=== PATIENT | female | born 1965 | race Two or more races ===

== ENCOUNTER 2021-03-26 06:03 | Emergency (ER) | payer OTHER ==
[2021-03-26] MEDS ORDERED: methylPREDNISolone Sodium Succinate 125 MG/2 ML SDV IVPUSH ONE (06:17)
--- NOTE | 2021-03-26 06:24 | EDM.PDOC ---
<Debbie Rueda - Last Filed: 03/26/21 11:09> ED HPI GENERAL MEDICAL PROBLEM - General Chief Complaint: Respiratory Problem Stated Complaint: SOB Time Seen by Provider: 03/26/21 06:15 - Related Data Allergies Allergy/AdvReac Type Severity Reaction Status Date / Time No Known Allergies Allergy Verified 03/26/21 06:18 Home Meds: Home Meds predniSONE 40 mg PO WITHBREAKFAST 5 Days #10 tab 03/26/21 [Rx] Course - Re-Assessments/Exams Free Text/Narrative Re-Assessment/Exam: 03/26/21 07:22 Feels much better after duoneb x 2. Breathing comfortably on 2 L NC, good air movement, minimal wheeze. Will observe/wean O2, anticipate dc soon if no recurrence of increased work of breathing. SpO2 91-93% on room air. Discussed ED return precautions. 03/26/21 11:09 Departure - Departure Time of Disposition: 08:32 Disposition: Home, Self-Care 01 Clinical Impression: Exacerbation of asthma Qualifiers: Asthma severity: unspecified severity Asthma persistence: unspecified Qualified Code(s): J45.901 - Unspecified asthma with (acute) exacerbation - Discharge Information Prescriptions: predniSONE 40 mg PO WITHBREAKFAST 5 Days #10 tab Instructions: Asthma Attack, Asthma Attack Prevention, Adult Referrals: PCP,Not In Area [Primary Care Provider] - Forms: ED Department Discharge Additional Instructions: 1. Take prednisone daily as prescribed 2. Use your albuterol inhaler as needed for any shortness of breath/wheezing 3. Follow up with your regular doctor when able 4. Return to the ED as needed for any difficulty breathing/worsening shortness of breath, fever, severe pain, or any other concerning symptoms <Brian Crawford - Last Filed: 03/30/21 20:38> ED HPI GENERAL MEDICAL PROBLEM - General Source of Information: Reports: Patient, Family History Limitations: Reports: Respiratory Distress (Spouse) - History of Present Illness INITIAL COMMENTS - FREE TEXT/NARRATIVE: 56-year-old female presents to the ED due to acute dyspnea with wheeze. She has a history of chronic asthma. Her and her have been on vacation and are headed back to their home in [place]. Symptoms started abruptly yesterday with increased dyspnea and shortness of breath on minimal exertion. Paroxysmal cough minimally productive of whitish sputum. No associated fever chills nausea or vomiting. She slept very little last night due to dyspnea and wheezing. She has been using albuterol metered-dose inhaler and Pulmicort with little relief of her asthma symptoms overnight. Does have some mild central chest discomfort. O2 sats were 92% on presentation to the ED. patient reports she did not ever come down with COVID-19 illness last year and has had both of her COVID-19 vaccinations. Onset: Gradual Onset Date: 03/25/21 Onset Time: 12:00 Duration: Hour(s):, Getting Worse Location: Reports: Chest (Dyspnea with wheeze i.e. asthma attack) Quality: Reports: Other (Shortness of breath with wheezing) Severity: Moderate (To severe) Improves with: Reports: Medication (Proved with metered-dose albuterol use.) Worsens with: Reports: Movement (Worse on exertion.) Context: Reports: Other (No specific known exposure to a trigger for her asthma.). Denies: Activity, Exercise, Lifting, Sick Contact, Trauma Associated Symptoms: Reports: Chest Pain, Cough (Mild central chest discomfort.), cough w sputum, Loss of Appetite, Malaise, Shortness of Breath, Other (Audible wheezing). 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 Denies: Fever, Chills HEENT: Reports: No Symptoms Respiratory: Reports: Shortness of Breath, Wheezing, Cough, Sputum. Denies: Pleuritic Chest Pain, Hemoptysis Cardiovascular: Reports: Chest Pain (Lady sputum production is pressure discomfort), Dyspnea on Exertion, Orthopnea. Denies: Blood Pressure Problem, Claudication, Edema, Lightheadedness, Palpitations Endocrine: Reports: Fatigue GI/Abdominal: Reports: Decreased Appetite : Reports: No Symptoms Musculoskeletal: Reports: No Symptoms Skin: Reports: No Symptoms Neurological: Reports: No Symptoms Psychiatric: Reports: No Symptoms Hematologic/Lymphatic: Reports: No Symptoms Immunologic: Reports: No Symptoms ED EXAM, GENERAL - Physical Exam Exam: See Below Exam Limited By: Other (Temperature is 36.3 degrees. Heart rate 95 and sinus. Respiratory was 24 to 28/min with O2 sats of 90 to 93% room air.) General Appearance: Alert ( BP 149/85.), Moderate Distress Eye Exam: Bilateral Eye: Normal Inspection, PERRL (No blepharal pallor or scleral icterus.) Throat/Mouth: Normal Inspection, Normal Lips, Normal Oropharynx, Other Head: Atraumatic, Normocephalic (No signs of oropharyngeal infection.) Neck: Normal Inspection, Supple, Non-Tender, Full Range of Motion. No: Carotid Bruit, Lymphadenopathy (L), Lymphadenopathy (R) Respiratory/Chest: Respiratory Distress, Decreased Breath Sounds, Wheezing (Audible wheezing.). No: Lungs Clear, Normal Breath Sounds ( Wheezing is coming from all 5 lobes of the lungs.), Rales, Rhonchi Cardiovascular: Normal Peripheral Pulses, Regular Rate, Rhythm, No Edema, No Gallop, No Murmur, No Rub Peripheral Pulses: 2+: Posterior Tibial (L), Posterior Tibial (R), Dorsalis Pedis (L), Dorsalis Pedis (R), 3+: Carotid (L), Carotid (R) GI/Abdominal: Normal Bowel Sounds, Soft, Non-Tender, No Organomegaly, No Mass, Pelvis Stable, Distended (Mildly distended upper abdomen , tympany to percussion compatible with mild aerophagia.) Extremities: Normal Inspection, Normal Range of Motion, Non-Tender, No Pedal Edema. No: Pedal Edema Neurological: Alert, Oriented, CN II-XII Intact, Normal Cognition, Normal Gait Psychiatric: Anxious Skin Exam: Warm, Dry, Intact, Normal Color, No Rash Course - Vital Signs Last Recorded V/S: Last Vital Signs Temp 36.3 C 03/26/21 06:14 Pulse 95 03/26/21 06:14 Resp 24 H 03/26/21 06:14 BP 149/85 H 03/26/21 06:14 Pulse Ox 89 L 03/26/21 06:51 - Orders/Labs/Meds Labs: Laboratory Tests 03/26/21 03/26/21 03/26/21 Range/Units 06:33 06:33 06:33 WBC 13.55 H (3.98-10.04) K/mm3 RBC 4.51 (3.98-5.22) M/mm3 Hgb 13.7 (11.2-15.7) gm/dl Hct 41.4 (34.1-44.9) % MCV 91.8 (79.4-94.8) fl MCH 30.4 (25.6-32.2) pg MCHC 33.1 (32.2-35.5) g/dl RDW Std Deviation 43.5 (36.4-46.3) fL Plt Count 336 (182-369) K/mm3 MPV 9.3 L (9.4-12.3) fl Neut % (Auto) 77.4 H (34.0-71.1) % Lymph % (Auto) 14.8 L (19.3-51.7) % [place] % (Auto) 5.8 (4.7-12.5) % Eos % (Auto) 1.8 (0.7-5.8) Baso % (Auto) 0.2 (0.1-1.2) % Neut # (Auto) 10.48 H (1.56-6.13) K/mm3 Lymph # (Auto) 2.00 (1.18-3.74) K/mm3 [place] # (Auto) 0.79 H (0.24-0.36) K/mm3 Eos # (Auto) 0.25 (0.04-0.36) K/mm3 Baso # (Auto) 0.03 (0.01-0.08) K/mm3 Manual Slide Review Normal smear Sodium 143 (136-145) mEq/L Potassium 4.2 (3.5-5.1) mEq/L Chloride 105 (98-107) mEq/L Carbon Dioxide 28 (21-32) mEq/L Anion Gap 14.2 (5-15) BUN 20 H (7-18) mg/dL Creatinine 0.8 (0.55-1.02) mg/dL Est Cr Clr Drug Dosing 66.19 mL/min Estimated GFR (MDRD) > 60 (>60) mL/min BUN/Creatinine Ratio 25.0 H (14-18) Glucose 120 H (70-99) mg/dL Calcium 9.7 (8.5-10.1) mg/dL Magnesium 2.3 (1.8-2.4) mg/dL Total Bilirubin 0.4 (0.2-1.0) mg/dL AST 34 (15-37) U/L ALT 48 (14-59) U/L Alkaline Phosphatase 77 (46-116) U/L C-Reactive Protein <0.2 (<1.0) mg/dL NT-Pro-B Natriuret Pep 74 (0-125) pg/mL Total Protein 7.9 (6.4-8.2) g/dl Albumin 3.9 (3.4-5.0) g/dl Globulin 4.0 gm/dL Albumin/Globulin Ratio 1.0 (1-2) Meds: Medications Discontinued Medications Generic Name Dose Route Start Last Admin Trade Name Freq PRN Reason Stop Dose Admin Albuterol/Ipratropium 3 ml 03/26/21 06:17 03/26/21 06:48 Albuterol/Ipratropium 3.0-0.5 Mg/3 Ml Neb Soln NEB 3 ml Q4H PRN Administration Shortness Of Breath/wheezing Albuterol/Ipratropium 3 ml 03/26/21 06:45 Albuterol/Ipratropium 3.0-0.5 Mg/3 Ml Neb Soln NEB Q4H PRN Shortness Of Breath/wheezing Sodium Chloride 1,000 mls @ 150 mls/hr 03/26/21 06:30 03/26/21 06:34 Normal Saline IV 150 mls/hr ASDIRECTED NOY Administration Methylprednisolone Sodium Succinate 125 mg 03/26/21 06:17 03/26/21 06:34 Methylprednisolone Sodium Succinate 125 Mg/2 Ml Sdv IVPUSH 03/26/21 06:18 125 mg ONETIME ONE Administration - Radiology Interpretation Free Text/Narrative:: 56-year-old female presents to the ED with an acute asthma attack which she s tates is started gradually yesterday afternoon. [place] were [place] There is a great deal of [place] throughout [facility] and [place]. She is not sure if he is allergic to this. She states she is allergic to many pollens and grasses. She has been up all night unable to get her breath. She did use albuterol metered-dose inhaler repeatedly and has a Pulmicort inhaler as well. She usually has to use her inhaler on a daily basis. On exam she is diffusely wheezing in all 5 lobes of her lungs. O2 sats were 90 to 93% room air. Plan normal saline infusion at 150 mils per hour. Solu-Medrol 125 mg IV. DuoNeb now and repeat in 25 minutes. Reevaluate at that time. Routine labs ordered including serum magnesium level. 1 view chest x-ray to be done. - Re-Assessments/Exams Free Text/Narrative Re-Assessment/Exam: 03/26/21 06:59 evaluated after the first DuoNeb and she still remains very wheezy with decreased air entry to both lower lobes by about 20%. O2 sats remained 89 to 90% on room air. She will be placed on oxygen at 2 L/min by nasal cannula. She states that she has not required steroids for many years. She has a Pulmicort inhaler that likely needs to be refilled. Portable chest x- ray done reveals hyperinflated lung hammond with no signs of pneumonic infiltrates and no pneumothorax no pleural effusion cardiac silhouette is normal. Care will be transferred to Dr. Debbie Rueda as it is change of shift. Sepsis Event Note (ED) - Evaluation Sepsis Screening Result: No Definite Risk
[2021-03-26] MEDS: Albuterol/Ipratropium 3.0-0.5 MG/3 ML Neb Soln NEB PRN ×2 (06:25→06:48)
[2021-03-26] MEDS ORDERED: Sodium Chloride 0.9% 1,000 ML IV SCH (06:30)
[2021-03-26] MEDS ORDERED: Albuterol/Ipratropium 3.0-0.5 MG/3 ML Neb Soln NEB PRN (06:45)
--- NOTE | 2021-03-26 08:59 | CR ---
Chest: Portable view of the chest was obtained. Comparison: No prior chest imaging is available. Heart size and mediastinum are normal. Lungs are clear with no acute parenchymal change. Bony structures show nothing acute. Impression: 1. Nothing acute is seen on portable chest x-ray. Diagnostic code #1
== END 2021-03-26 08:39 | disposition home or self-care (01) ==
LOC: JD.ED 06:03
DX: J45.901 Unspecified asthma with (acute) exacerbation (principal)
CPT/HCPCS: 36415; 71045; 80053; 83735; 83880; 85025; 86140; 94640; 96374; 99285; J2930; J7030; 99283; J7620-GY